=== PATIENT | male | born 1970 | race Caucasian/White ===

== ENCOUNTER 2018-11-10 18:02 | Emergency (ER) | payer OTHER ==
[~2018-11-10] VITALS: Ht 185.4 cm; Wt 222.3 kg
[2018-11-10] MEDS ORDERED: HYDR1TAB94 PO (19:38)
== END 2018-11-10 19:53 | disposition home or self-care (01) ==
LOC: ER 18:02
DX: S46.211A Strain of muscle, fascia and tendon of other parts of biceps, right arm, initial encounter (principal); X58.XXXA Exposure to other specified factors, initial encounter
CPT/HCPCS: 99283